=== PATIENT | female | born 1975 | race Caucasian/White ===

== ENCOUNTER 2020-05-28 10:38 | Emergency (ER) | payer SELFPAY ==
[~2020-05-28] VITALS: Ht 162.6 cm; Wt 44.9 kg
[2020-05-28 10:42] VITALS: BP 100/71
[2020-05-28] MEDS ORDERED: ACETAMINOPHEN EXTRA STRENGTH 500 MG TAB PO ONE (10:50)
--- NOTE | 2020-05-28 11:00 | NUR ---
PT WAS BROUGHT TO ROOM 9. ORAL TEMP OF 101.3. ACETAMINOPHEN 1000MG WAS GIVEN.
--- NOTE | 2020-05-28 11:14 | NUR ---
44 Y/O F C/O FEVER AND BODY ACHES THAT STARTED 05/26/20. PT STATES SHE IS CURRENTLY HAVING SOB, FEELS DIZZY, AND CHEST PAIN. PT WAS PUT ON CARDIAC, BP AND PULSE OX MONITORING. CHEST PAIN 10/10 SHARP THAT RADIATES TO ALL EXTREMITIES. PT STATES SHE WAS TAKEN ANTIBIOTICS (UNSURE OF NAME) FROM "A LADY" WHO GAVE THEM TO HER. LAST BM WAS NORMAL, SOFT, EASY TO PASS, 05/28/20 0900. LMP WAS TWO WEEKS AGO . NO PMH, NKA. DENIES CONTACT WITH ANYONE COVID POSITIVE.
--- NOTE | 2020-05-28 11:57 | NUR ---
CXR AT BEDSIDE
[2020-05-28 12:19] LABS: BARBITURATE, URINE NEGATIVE ng/ml (NEG <=200); BENZODIAZEPINE, URINE NEGATIVE ng/mL (NEG <=200); CANNABINOID, URINE NEGATIVE ng/mL (NEG <=50); COCAINE, URINE NEGATIVE ng/mL (NEG <=300); OPIATE, URINE NEGATIVE ng/mL (NEG <=2000); PHENCYCLIDINE SCREEN,URINE NEGATIVE ng/mL (NEG <=25)
[2020-05-28 12:55] VITALS: BP 111/72
--- NOTE | 2020-05-28 12:56 | NUR ---
Patient discharged with v/s stable. Written and verbal after care instructions given and explained. Patient alert, oriented and verbalized understanding of instructions. Ambulatory with steady gait. All questions addressed prior to discharge. ID band removed. Patient advised to follow up with PMD. Rx of NAPORSYN, ACETAMINOPHEN given. Patient educated on indication of medication including possible reaction and side effects. Opportunity to ask questions provided and answered.
== END 2020-05-28 12:56 | disposition home or self-care (01) ==
LOC: MED 10:38
DX: R50.9 Fever, unspecified (principal); Z20.822 Contact with and (suspected) exposure to COVID-19
CPT/HCPCS: 71045; 80305; 81002; 81025; 99284

== ENCOUNTER 2020-05-31 12:46 | Emergency (ER) | payer SELFPAY ==
[~2020-05-31] VITALS: Ht 160 cm; Wt 46.7 kg
[2020-05-31 12:51] VITALS: BP 119/77
--- NOTE | 2020-05-31 12:52 | NUR ---
44 y/o female from home presents to ED after visit 3 days ago. Pt states she was told to return for recheck of covid symptoms. Denies original body aches and fever at this time. Denies cough/sob. Awake and alert. VSS medhx: denies
--- NOTE | 2020-05-31 13:43 | NUR ---
Covid swab collected and walked to lab.
--- NOTE | 2020-05-31 13:44 | NUR ---
CLIFF Cano is evaluating the patient at bedside.
[2020-05-31 13:52] VITALS: BP 119/77
--- NOTE | 2020-05-31 13:53 | NUR ---
Patient discharged with v/s stable. Written and verbal after care instructions given and explained. Patient verbalized understanding. Ambulatory with steady gait. All questions addressed prior to discharge. Advised to follow up with PMD.
== END 2020-05-31 13:53 | disposition home or self-care (01) ==
LOC: MED 12:46
DX: Z20.822 Contact with and (suspected) exposure to COVID-19 (principal)
CPT/HCPCS: 99283; U0003

== ENCOUNTER 2020-10-11 23:13 | Emergency (ER) | payer OTHER ==
[~2020-10-11] VITALS: Ht 160 cm; Wt 58.5 kg
[2020-10-11 23:32] VITALS: BP 134/90
--- NOTE | 2020-10-11 23:35 | NUR ---
TO LOBBY A/W BED VIA W/C
[2020-10-12] MEDS ORDERED: HYDROcodone/APAP 5/325 MG 1 TAB TAB PO ONE (01:05)
[2020-10-12] MEDS ORDERED: KETOROLAC 30 MG/ML VIAL IM ONE (01:05)
[2020-10-12] MEDS ORDERED: BACITRACIN OINT 500 UNITS/GM PKT TP ONE (01:05)
[2020-10-12] MEDS ORDERED: NAPR-54 PO (01:12)
[2020-10-12] MEDS ORDERED: CEPH-588 PO (01:12)
[2020-10-12] MEDS ORDERED: SULF-59 PO (01:12)
--- NOTE | 2020-10-12 01:46 | NUR ---
Patient refused toradol for pain, reports her pain is not that bad at this moment and is at 5/10.
--- NOTE | 2020-10-12 02:17 | NUR ---
Upon ambulatory discharge patient reports she would rather be discharged via wheelchair d/t leg pain. Patient discharged via wheelchair to waiting area. Patient then ambulated w assistance of .
[2020-10-12 02:18] VITALS: BP 134/90
--- NOTE | 2020-10-12 02:18 | NUR ---
Patient discharged with v/s stable. Written and verbal after care instructions given and explained. Patient alert, oriented and verbalized understanding of instructions. Ambulatory with steady gait. All questions addressed prior to discharge. ID band removed. Patient advised to follow up with PMD. Rx of Keflex, Naprosyn given. Patient educated on indication of medication including possible reaction and side effects. Opportunity to ask questions provided and answered.
[2020-10-12 03:32] LABS: BARBITURATE, URINE NEGATIVE ng/ml (NEG <=200); BENZODIAZEPINE, URINE NEGATIVE ng/mL (NEG <=200); CANNABINOID, URINE NEGATIVE ng/mL (NEG <=50); COCAINE, URINE POSITIVE ng/mL (NEG <=300); OPIATE, URINE NEGATIVE ng/mL (NEG <=2000); PHENCYCLIDINE SCREEN,URINE NEGATIVE ng/mL (NEG <=25)
== END 2020-10-12 02:18 | disposition home or self-care (01) ==
LOC: MED 23:13
DX: R21 Rash and other nonspecific skin eruption (principal); R23.4 Changes in skin texture; F17.210 Nicotine dependence, cigarettes, uncomplicated; Z79.899 Other long term (current) drug therapy
CPT/HCPCS: 80305; 81025; 96372; 99283; J1885